=== PATIENT | female | born 1995 | race Caucasian/White ===

== ENCOUNTER 2016-11-24 00:23 | Emergency (ER) | payer OTHER ==
--- NOTE | 2016-11-24 02:31 | ED NURSING NOTES ---
Clinical Report - Nurses [place] [address] [place] [address] 11/24/2016 0:26 [facility]: [facility]É [facility]EL FOLEY [id number] TRI[facility] Triage time 00:33 Nov 24 2016. Acuity: LEVEL 3. Chief Complaint: INJURY TO RIGHT HAND and INJURY TO RIGHT WRIST. SEPSIS SCREEN: Sepsis Screen: negative. Negative (no infection suspected/documented). PATRICIO COMA SCORE: [place] Coma Scale: 15- eyes open spontaneously (4); best verbal response- oriented x 4 (5); best motor response- obeys commands (6). --00:38 Bridgette Herrera 00:33 11/24/16. BP: 116/66. HR: 66. RR: 20. O2 saturation: 99% on room air. Temp: 97.9 F (oral). Pain level now: 04/19. --00:38 Bridgette Herrera. Weight: 63.5 kg stated. Height/Length: 65 inches Per Patient. BMI: 23.3. --00:35 Bridgette Herrera. Medications SUMAtriptan Succinate Oral. --00:34 Bridgette Herrera Control Pills. --00:34 Bridgette Herrera. Medication/allergy information source: the patient. --00:38 Bridgette Herrera. Allergies No Known Drug Allergy. --00:35 Bridgette Herrera. History Arrived by private vehicle. Historian: patient. Accompanied by family. Primary physician ([employer]). This occurred just prior to arrival. Occurred at home. Mechanism of injury: fell while walking and landed on a carpeted surface; tripped. ( Patient reports she was walking at home when she tripped and fell. She states she landed on her right hand extended. She reports pain in her hand and wrist.). Treatment ASSISTANT PROFESSOR OF BIOLOGY: Ice. PAST MEDICAL HX: Immunizations: up-to-date. Last normal menstrual period now. SOCIAL HX: Never smoker. Occasional alcohol use. No drug use. No infectious disease exposure. ABUSE ASSESSMENT: No report of abuse. FALL RISK ASSESSMENT: Fall risk assessment completed. No fall risk identified. NUTRITIONAL RISK ASSESSMENT: The nutritional risk assessment revealed no deficiencies. FUNCTIONAL ASSESSMENT: Functional assessment: no impairments noted. LEARNING NEEDS ASSESSMENT: The learning needs assessment revealed no barriers. SKIN INTEGRITY ASSESSMENT: Skin integrity risk assessment completed. No skin integrity risk identified. --00:38 Bridgette Herrera. PROBLEMS: no known problems. ADDITIONAL SURGERIES: no known surgeries. Interventions ID band on patient. To treatment room. --00:38 Bridgette Herrera. PHYSICAL ASSESSMENT GENERAL / NEURO / PSYCH: Oriented X 4. Alert. Appears in no acute distress. EXTREMITIES: Capillary refill is less than 2 seconds in the extremities. Extremity pulses are within normal limits. Right wrist: tenderness, swelling and ecchymosis located in the ulnar aspect of the wrist. Limited ROM secondary to pain. SKIN: Skin intact. Skin is warm and dry. --00:38 Bridgette Herrera. NURSING PROGRESS NOTES 00:38 11/24/16. Cold pack applied. Patient gowned. Reassurance given to the patient. Two patient identifiers checked. Call light placed in reach. Side rails up x 1. Bed placed in lowest position. Brakes of bed on. Patient ready for evaluation- chart flagged. --00:38 Bridgette Herrera Velcro upper extremity splint applied to right wrist by tech. Distal pulses intact, sensation intact and motor within normal limits. --02:53 Bartolo Rodriguez. DISPOSITION / DISCHARGE 02:40 11/24/16. Condition at departure: stable. No learning barriers present. Discharge instructions provided and reviewed with the patient. Reviewed warnings (Do not drive while on sedative medications). Reviewed medication(s) side effects, precautions, dosing and course information. Prescription(s) given to the patient. Patient verbalized understanding. Written instructions provided in Welsh. ( Apply ice for twenty minutes at a time, elevate extremity and limit use until feeling better. Follow up with your PCP in one week.). The patient was discharged by the physician. She was discharged home and accompanied by spouse. She left the Emergency Department ambulatory and via private vehicle. Spouse driving. --06:16 Bridgette Herrera 02:40 11/24/16. BP: 101/63. HR: 70. RR: 20. O2 saturation: 98% on room air. Temp: 97.8 F (oral). Pain level now: 02/17. --06:16 Bridgette Herrera. Locked/Released at 11/24/2016 6:17 by Bridgette Herrera,
--- NOTE | 2016-11-24 02:31 | ED CLINICAL REPORT ---
Clinical Report - Physicians/Mid Levels [facility] [address] [place] [address] 11/24/2016 0:26 Patient: JOSÉ MANUEL FOLEY Time Seen: 0115. Arrived- By private vehicle. Historian- patient. HISTORY OF PRESENT ILLNESS Chief Complaint: Injury to the right wrist. The injury happened today. Fell (onto her right outstretched hand). Occurred at home. ( no preceding symptoms.). Patient is experiencing moderate pain. Patient denies injury to the head or neck. No other injury. REVIEW OF SYSTEMS The patient has had new onset of swelling. No foreign body or skin laceration. All systems otherwise negative, except as recorded above. PAST HISTORY See nurses notes. Tetanus immunization status is up-to-date. Problems: no known problems. Additional Surgeries: no known surgeries. Medications: Control Pills. SUMAtriptan Succinate Oral. Allergies: No Known Drug Allergy. SOCIAL HISTORY Never smoker. No alcohol use or drug use. Is a local resident. ADDITIONAL NOTES The nursing notes have been reviewed. PHYSICAL EXAM Vital Signs: 11/24/2016 00:33 BP: 116/66. HR: 66. RR: 20. O2 saturation: 99%. Temp: 97.9 F. Pain level now: 8/10. Blood pressure normal. Oxygen saturation normal. Appearance: Alert. Oriented X3. No acute distress. Head: Head atraumatic. Eyes: Pupils equal, round and reactive to light. Eyes normal inspection. ENT: Ears normal. Nose normal. Pharynx normal. Neck: Normal inspection. Neck supple. C-spine non-tender. CVS: Normal heart rate and rhythm. Heart sounds normal. Pulses normal. Respiratory: No respiratory distress. Breath sounds normal. Chest nontender. Abdomen: No visible injury. Soft and nontender. Bowel sounds normal. No mass. Extremities: (ecchymosis noted to the lateral aspect of the dorsal right wrist. No bony abnormalities. Hand and fingers are neurovascularly intact. No snuffbox tenderness. No tenderness with axial loading of the thumb. Radial and ulnar and pulses are symmetrical and 2+ compared to the contralateral side. Compartments are soft. Skin is intact. No other overlying skin changes.). Extremities otherwise negative. Neuro, Vascular and Tendons: Vascular status intact. Sensation intact. Motor intact. Tendon function intact. LABS, X-RAYS, AND EKG Rt Wrist X-ray: No fracture. No bony lesion, air in the soft tissue or foreign body. Joint spaces normal. Mild soft tissue swelling. (negative right wrist film). Views: AP, lateral and oblique. The X-rays were independently viewed by me and interpreted contemporaneously by me. Prior films were not available for comparison. PROGRESS AND PROCEDURES Course of Care: he patient is a pleasant 21-year-old female presenting for evaluation of right wrist pain. At this time differential diagnosis includes dislocation, fracture, or contusion. Patient is declining offers of pain medication at this time. I suspect been provided. No signs of neurovascular compromise on evaluation. Patient is agreeable to the treatment and plan. Workup does not show any acute osseous abnormalities. Soft tissue swelling noted. Head discussion with patient in regards to diagnostic uncertainty here in the emergency department and need for follow-up with the hand to ensure proper healing. Repeat examination continues he benign. Velcro wrist splintapplied for Protection and comfort. Discussed with patient workup, diagnosis, home care, follow-up, and return precautions. All questions have been answered. The patient expressed understanding of these instructions and was agreeable to them. Disposition: Discharged. Condition: good. CLINICAL IMPRESSION 11/24/2016 00:33 BP: 116/66. HR: 66. RR: 20. O2 saturation: 99%. Temp: 97.9 F. Pain level now: 8/10. Blood pressure normal. Oxygen saturation normal. Single contusion with soft tissue hematoma to the right wrist. INSTRUCTIONS Off work today. Off school today. Warnings: GENERAL WARNINGS: Return or contact your physician immediately if your condition worsens or changes unexpectedly, if not improving as expected, or if other problems arise. Specifically return if pain, vomiting, bleeding, breathing difficulty or fever. Your Current Medications: CONTINUE TAKING THE FOLLOWING MEDICATIONS: Control Pills*. SUMAtriptan Succinate Oral. Prescription Medications: [place] 5 mg / 325 mg tablets: take 1 orally every 6 hours as needed for pain. Dispense twelve (12). No refill. Substitution is permissible. OTC Medications: Motrin (available over the counter): take according to label instructions. Follow-up: Return to the emergency department as needed. Follow up with your doctor in one week. Reason for referral: recheck today's concerns. Summary of care provided to patient via paper. Screening today revealed the patient's blood pressure to be in the normal range. The patient should follow up with a primary care provider for blood pressure management. Understanding of the discharge instructions verbalized by patient. (Electronically signed by Gianni Matos Dr. 11/26/2016 10:40)
--- NOTE | 2016-11-24 02:31 | ED ORDER SUMMARY ---
..... Patient: JOSÉ MANUEL FOLEY OrderSheet [facility] VisitID: [id number] [place] [address] 21y, F Registration Date/Time: 11/24/2016 ORDER SHEET Weight: 63.5 kg (stated) Allergies: No Known Drug Allergy GENERAL ORDERS: Wrist 3 or 4V Right Urgent (01:11/24/2016 Gelacio Valdes) (Ack 1:30 ALawrence ER Tech1) (2:37 HSoule) Ice (01:11/24/2016 Gelacio Valdes) (1:28 HSoule) Splint (UE) (Right) (Velcro - wrist) (02:27 11/24/2016 Gelacio Valdes) (6:17 HSoule) MEDICATION ORDERS: IV FLUIDS: ORDER SHEET NOTES: [Electronically signed by Bridgette Herrera (06:17 11/24/2016)] [Electronically signed by Gianni Matos Dr. (10:40 11/26/2016)] [Electronically locked/signed by Bridgette Herrera (06:17 11/24/2016)]
--- NOTE | 2016-11-24 02:31 | ED NURSING NOTES ---
Clinical Report - Nurses [place] [address] [place] [address] 11/24/2016 0:26 [id number] Triage time 00:33 Nov 24 2016. Acuity: LEVEL 3. Chief Complaint: INJURY TO RIGHT HAND and INJURY TO RIGHT WRIST. SEPSIS SCREEN: Sepsis Screen: negative. Negative (no infection suspected/documented). PATRICIO COMA SCORE: [place] Coma Scale: 15- eyes open spontaneously (4); best verbal response- oriented x 4 (5); best motor response- obeys commands (6). --00:38 Bridgette Herrera 00:33 11/24/16. BP: 116/66. HR: 66. RR: 20. O2 saturation: 99% on room air. Temp: 97.9 F (oral). Pain level now: 04/19. --00:38 Bridgette Herrera. Weight: 63.5 kg stated. Height/Length: 65 inches Per Patient. BMI: 23.3. --00:35 Bridgette Herrera. Medications SUMAtriptan Succinate Oral. --00:34 Bridgette Herrera Control Pills. --00:34 Bridgette Herrera. Medication/allergy information source: the patient. --00:38 Bridgette Herrera. Allergies No Known Drug Allergy. --00:35 Bridgette Herrera. History Arrived by private vehicle. Historian: patient. Accompanied by family. Primary physician ([employer]). This occurred just prior to arrival. Occurred at home. Mechanism of injury: fell while walking and landed on a carpeted surface; tripped. ( Patient reports she was walking at home when she tripped and fell. She states she landed on her right hand extended. She reports pain in her hand and wrist.). Treatment CHANGE ANALYST: Ice. PAST MEDICAL HX: Immunizations: up-to-date. Last normal menstrual period now. SOCIAL HX: Never smoker. Occasional alcohol use. No drug use. No infectious disease exposure. ABUSE ASSESSMENT: No report of abuse. FALL RISK ASSESSMENT: Fall risk assessment completed. No fall risk identified. NUTRITIONAL RISK ASSESSMENT: The nutritional risk assessment revealed no deficiencies. FUNCTIONAL ASSESSMENT: Functional assessment: no impairments noted. LEARNING NEEDS ASSESSMENT: The learning needs assessment revealed no barriers. SKIN INTEGRITY ASSESSMENT: Skin integrity risk assessment completed. No skin integrity risk identified. --00:38 Bridgette Herrera. PROBLEMS: no known problems. ADDITIONAL SURGERIES: no known surgeries. Interventions ID band on patient. To treatment room. --00:38 Bridgette Herrera. PHYSICAL ASSESSMENT GENERAL / NEURO / PSYCH: Oriented X 4. Alert. Appears in no acute distress. EXTREMITIES: Capillary refill is less than 2 seconds in the extremities. Extremity pulses are within normal limits. Right wrist: tenderness, swelling and ecchymosis located in the ulnar aspect of the wrist. Limited ROM secondary to pain. SKIN: Skin intact. Skin is warm and dry. --00:38 Bridgette Herrera. NURSING PROGRESS NOTES 00:38 11/24/16. Cold pack applied. Patient gowned. Reassurance given to the patient. Two patient identifiers checked. Call light placed in reach. Side rails up x 1. Bed placed in lowest position. Brakes of bed on. Patient ready for evaluation- chart flagged. --00:38 Bridgette Herrera Velcro upper extremity splint applied to right wrist by tech. Distal pulses intact, sensation intact and motor within normal limits. --02:53 Bartolo Rodriguez. DISPOSITION / DISCHARGE 02:40 11/24/16. Condition at departure: stable. No learning barriers present. Discharge instructions provided and reviewed with the patient. Reviewed warnings (Do not drive while on sedative medications). Reviewed medication(s) side effects, precautions, dosing and course information. Prescription(s) given to the patient. Patient verbalized understanding. Written instructions provided in Slovak. ( Apply ice for twenty minutes at a time, elevate extremity and limit use until feeling better. Follow up with your PCP in one week.). The patient was discharged by the physician. She was discharged home and accompanied by spouse. She left the Emergency Department ambulatory and via private vehicle. Spouse driving. --06:16 Bridgette Herrera 02:40 11/24/16. BP: 101/63. HR: 70. RR: 20. O2 saturation: 98% on room air. Temp: 97.8 F (oral). Pain level now: 02/17. --06:16 Bridgette Herrera. Locked/Released at 11/24/2016 6:17 by Bridgette Herrera,
--- NOTE | 2016-11-24 02:31 | ED ORDER SUMMARY ---
..... Patient: JOSÉ MANUEL FOLEY OrderSheet [facility] VisitID: [id number] [place] [address] 21y, F Registration Date/Time: 11/24/2016 ORDER SHEET Weight: 63.5 kg (stated) Allergies: No Known Drug Allergy GENERAL ORDERS: Wrist 3 or 4V Right Urgent (01:11/24/2016 Gelacio Valdes) (Ack 1:30 ALawrence ER Tech1) (2:37 HSoule) Ice (01:11/24/2016 Gelacio Valdes) (1:28 HSoule) Splint (UE) (Right) (Velcro - wrist) (02:27 11/24/2016 Gelacio Valdes) (6:17 HSoule) MEDICATION ORDERS: IV FLUIDS: ORDER SHEET NOTES: [Electronically signed by Bridgette Herrera (06:17 11/24/2016)] [Electronically signed by Gianni Matos Dr. (10:40 11/26/2016)] [Electronically locked/signed by Bridgette Herrera (06:17 11/24/2016)]
--- NOTE | 2016-11-24 10:16 | DIAGNOSTIC IMAGING REPORT ---
PROCEDURE: XR WRIST MIN 3 VIEWS - RIGHT INDICATION: TRAUMA/INJURY TECHNIQUE: Four views of the right wrist. COMPARISON: None. FINDINGS: Normal mineralization. No fractures. Normal osseous alignment. No suspicious soft-tissue calcification or radiodense foreign bodies. IMPRESSION: 1. Intact right wrist.
--- NOTE | 2016-11-26 10:40 | ED MAR SUMMARY ---
..... Medication Administration Record [facility] [address] [place], [place] [id number] Patient: JOSÉ MANUEL FOLEY Visit ID: [id number] 21y, F Weight: 63.5 kg Height/Length: 65 in BMI: 23.3 ALLERGIES: No Known Drug Allergy
--- NOTE | 2016-11-26 10:40 | ED DISCHARGE INSTRUCTIONS ---
Patient: JOSÉ MANUEL FOLEY General Instructions [facility] VisitID: [id number] [place] [address] 21y, F Registration Date/Time: 11/24/2016 11/24/2016 00:33 BP: 116/66. HR: 66. RR: 20. O2 saturation: 99%. Temp: 97.9 F. Pain level now: 8/10. Blood pressure normal. Oxygen saturation normal. Single contusion with soft tissue hematoma to the right wrist. INSTRUCTIONS Off work today. Off school today. Warnings: GENERAL WARNINGS: Return or contact your physician immediately if your condition worsens or changes unexpectedly, if not improving as expected, or if other problems arise. Specifically return if pain, vomiting, bleeding, breathing difficulty or fever. Your Current Medications: CONTINUE TAKING THE FOLLOWING MEDICATIONS: Control Pills*. SUMAtriptan Succinate Oral. Prescription Medications: [place] 5 mg / 325 mg tablets: take 1 orally every 6 hours as needed for pain. Dispense twelve (12). No refill. Substitution is permissible. OTC Medications: Motrin (available over the counter): take according to label instructions. Follow-up: Return to the emergency department as needed. Follow up with your doctor in one week. Reason for referral: recheck today's concerns. Summary of care provided to patient via paper. Screening today revealed the patient's blood pressure to be in the normal range. The patient should follow up with a primary care provider for blood pressure management. Understanding of the discharge instructions verbalized by patient. ADDITIONAL INFORMATION Contusion:Upper Extremity You have a contusion of your upper extremity (arm, wrist, hand or fingers). This causes local pain, swelling and sometimes bruising. There are no broken bones. This injury takes a few days to a few weeks to heal. A sling may be provided for comfort and arm support. Home Care: 1) Keep your arm elevated to reduce pain and swelling. This is very important during the first 48 hours. 2) Apply an ice pack (ice cubes in a plastic bag, wrapped in a towel) over the injured area for 20 minutes every 1-2 hours the first day for pain relief. Continue this 3-4 times a day until the pain and swelling goes away. 3) You may use acetaminophen (Tylenol) or ibuprofen (Motrin, Advil) to control pain, unless another pain medicine was prescribed. [ NOTE : If you have chronic liver or kidney disease or ever had a stomach ulcer or GI bleeding, talk with your doctor before using these medicines.] 4) If a sling was provided, you may remove it to shower or bathe. Do not wear it for more than one week or it may cause joint stiffness. Follow Up with your doctor or this facility if you are not starting to improve within the next THREE days. [NOTE: If X-rays were taken, they will be reviewed by a radiologist. You will be notified of any new findings that may affect your care.] Get Prompt Medical Attention if any of the following occur: -- Pain or swelling increases -- Redness, warmth or drainage -- Hand or fingers becomes cold, blue, numb or tingly Hydrocodone Bitartrate, Acetaminophen Oral tablet What is this medicine? ACETAMINOPHEN; HYDROCODONE (a set a ENOCH sony fen; ej droe KOE done) is a pain reliever. It is used to treat mild to moderate pain. How should I use this medicine? Take this medicine by mouth. Swallow it with a full glass of water. Follow the directions on the prescription label. If the medicine upsets your stomach, take the medicine with food or milk. Do not take more than you are told to take. Talk to your rivet flunky regarding the use of this medicine in children. This medicine is not approved for use in children. What side effects may I notice from receiving this medicine? Side effects that you should report to your doctor or health ambulatory care coordinator as soon as possible: allergic reactions like skin rash, itching or hives, swelling of the face, lips, or tongue breathing problems confusion feeling faint or lightheaded, falls stomach pain yellowing of the eyes or skin Side effects that usually do not require medical attention (report to your doctor or health ambulatory care coordinator if they continue or are bothersome): nausea, vomiting stomach upset What may interact with this medicine? alcohol antihistamines isoniazid medicines for depression, anxiety, or psychotic disturbances medicines for sleep muscle relaxants naltrexone narcotic medicines (opiates) for pain phenobarbital ritonavir tramadol What if I miss a dose? If you miss a dose, take it as soon as you can. If it is almost time for your next dose, take only that dose. Do not take double or extra doses. Where should I keep my medicine? Keep out of the reach of children. This medicine can be abused. Keep your medicine in a safe place to protect it from theft. Do not share this medicine with anyone. Selling or giving away this medicine is dangerous and against the law. Store at room temperature between 15 and 30 degrees C (59 and 86 degrees F). Protect from light. Keep container tightly closed. Throw away any unused medicine after the expiration date. Discard unused medicine and used packaging carefully. Pets and children can be harmed if they find used or lost packages. What should I tell my health care provider before I take this medicine? They need to know if you have any of these conditions: brain tumor Crohn's disease, inflammatory bowel disease, or ulcerative colitis drink more than 3 alcohol-containing drinks per day drug abuse or addiction head injury heart or circulation problems kidney disease or problems going to the bathroom liver disease lung disease, asthma, or breathing problems an unusual or allergic reaction to acetaminophen, hydrocodone, other opioid analgesics, other medicines, foods, dyes, or preservatives or trying to get breast-feeding What should I watch for while using this medicine? Tell your doctor or health ambulatory care coordinator if your pain does not go away, if it gets worse, or if you have new or a different type of pain. You may develop tolerance to the medicine. Tolerance means that you will need a higher dose of the medicine for pain relief. Tolerance is normal and is expected if you take the medicine for a long time. Do not suddenly stop taking your medicine because you may develop a severe reaction. Your body becomes used to the medicine. This does NOT mean you are addicted. Addiction is a behavior related to getting and using a drug for a non-medical reason. If you have pain, you have a medical reason to take pain medicine. Your doctor will tell you how much medicine to take. If your doctor wants you to stop the medicine, the dose will be slowly lowered over time to avoid any side effects. You may get drowsy or dizzy when you first start taking the medicine or change doses. Do not drive, use machinery, or do anything that may be dangerous until you know how the medicine affects you. Stand or sit up slowly. There are different types of narcotic medicines (opiates) for pain. If you take more than one type at the same time, you may have more side effects. Give your health care provider a list of all medicines you use. Your doctor will tell you how much medicine to take. Do not take more medicine than directed. Call emergency for help if you have problems breathing. The medicine will cause constipation. Try to have a bowel movement at least every 2 to 3 days. If you do not have a bowel movement for 3 days, call your doctor or health ambulatory care coordinator. Too much acetaminophen can be very dangerous. Do not take Tylenol (acetaminophen) or medicines that contain acetaminophen with this medicine. Many non-prescription medicines contain acetaminophen. Always read the labels carefully. You have been given the following additional information: Contusion, Upper Extremity Hydrocodone Bitartrate, Acetaminophen Oral tablet Off work today. Off school today. (Electronically signed by Gianni Matos Dr. 11/26/2016 10:40)
--- NOTE | 2016-11-26 10:40 | ED MAR SUMMARY ---
..... Medication Administration Record [facility] [address] [place], [place] [id number] Patient: JOSÉ MANUEL FOLEY Visit ID: [id number] 21y, F Weight: 63.5 kg Height/Length: 65 in BMI: 23.3 ALLERGIES: No Known Drug Allergy
--- NOTE | 2016-11-26 10:40 | ED DISCHARGE INSTRUCTIONS ---
Patient: JOSÉ MANUEL FOLEY General Instructions [facility] VisitID: [id number] [place] [address] 21y, F Registration Date/Time: 11/24/2016 11/24/2016 00:33 BP: 116/66. HR: 66. RR: 20. O2 saturation: 99%. Temp: 97.9 F. Pain level now: 8/10. Blood pressure normal. Oxygen saturation normal. Single contusion with soft tissue hematoma to the right wrist. INSTRUCTIONS Off work today. Off school today. Warnings: GENERAL WARNINGS: Return or contact your physician immediately if your condition worsens or changes unexpectedly, if not improving as expected, or if other problems arise. Specifically return if pain, vomiting, bleeding, breathing difficulty or fever. Your Current Medications: CONTINUE TAKING THE FOLLOWING MEDICATIONS: Control Pills*. SUMAtriptan Succinate Oral. Prescription Medications: [place] 5 mg / 325 mg tablets: take 1 orally every 6 hours as needed for pain. Dispense twelve (12). No refill. Substitution is permissible. OTC Medications: Motrin (available over the counter): take according to label instructions. Follow-up: Return to the emergency department as needed. Follow up with your doctor in one week. Reason for referral: recheck today's concerns. Summary of care provided to patient via paper. Screening today revealed the patient's blood pressure to be in the normal range. The patient should follow up with a primary care provider for blood pressure management. Understanding of the discharge instructions verbalized by patient. ADDITIONAL INFORMATION Contusion:Upper Extremity You have a contusion of your upper extremity (arm, wrist, hand or fingers). This causes local pain, swelling and sometimes bruising. There are no broken bones. This injury takes a few days to a few weeks to heal. A sling may be provided for comfort and arm support. Home Care: 1) Keep your arm elevated to reduce pain and swelling. This is very important during the first 48 hours. 2) Apply an ice pack (ice cubes in a plastic bag, wrapped in a towel) over the injured area for 20 minutes every 1-2 hours the first day for pain relief. Continue this 3-4 times a day until the pain and swelling goes away. 3) You may use acetaminophen (Tylenol) or ibuprofen (Motrin, Advil) to control pain, unless another pain medicine was prescribed. [ NOTE : If you have chronic liver or kidney disease or ever had a stomach ulcer or GI bleeding, talk with your doctor before using these medicines.] 4) If a sling was provided, you may remove it to shower or bathe. Do not wear it for more than one week or it may cause joint stiffness. Follow Up with your doctor or this facility if you are not starting to improve within the next THREE days. [NOTE: If X-rays were taken, they will be reviewed by a radiologist. You will be notified of any new findings that may affect your care.] Get Prompt Medical Attention if any of the following occur: -- Pain or swelling increases -- Redness, warmth or drainage -- Hand or fingers becomes cold, blue, numb or tingly Hydrocodone Bitartrate, Acetaminophen Oral tablet What is this medicine? ACETAMINOPHEN; HYDROCODONE (a set a ENOCH sony fen; ej droe KOE done) is a pain reliever. It is used to treat mild to moderate pain. How should I use this medicine? Take this medicine by mouth. Swallow it with a full glass of water. Follow the directions on the prescription label. If the medicine upsets your stomach, take the medicine with food or milk. Do not take more than you are told to take. Talk to your game designer/creative director regarding the use of this medicine in children. This medicine is not approved for use in children. What side effects may I notice from receiving this medicine? Side effects that you should report to your doctor or health medical care evaluation specialist as soon as possible: allergic reactions like skin rash, itching or hives, swelling of the face, lips, or tongue breathing problems confusion feeling faint or lightheaded, falls stomach pain yellowing of the eyes or skin Side effects that usually do not require medical attention (report to your doctor or health medical care evaluation specialist if they continue or are bothersome): nausea, vomiting stomach upset What may interact with this medicine? alcohol antihistamines isoniazid medicines for depression, anxiety, or psychotic disturbances medicines for sleep muscle relaxants naltrexone narcotic medicines (opiates) for pain phenobarbital ritonavir tramadol What if I miss a dose? If you miss a dose, take it as soon as you can. If it is almost time for your next dose, take only that dose. Do not take double or extra doses. Where should I keep my medicine? Keep out of the reach of children. This medicine can be abused. Keep your medicine in a safe place to protect it from theft. Do not share this medicine with anyone. Selling or giving away this medicine is dangerous and against the law. Store at room temperature between 15 and 30 degrees C (59 and 86 degrees F). Protect from light. Keep container tightly closed. Throw away any unused medicine after the expiration date. Discard unused medicine and used packaging carefully. Pets and children can be harmed if they find used or lost packages. What should I tell my health care provider before I take this medicine? They need to know if you have any of these conditions: brain tumor Crohn's disease, inflammatory bowel disease, or ulcerative colitis drink more than 3 alcohol-containing drinks per day drug abuse or addiction head injury heart or circulation problems kidney disease or problems going to the bathroom liver disease lung disease, asthma, or breathing problems an unusual or allergic reaction to acetaminophen, hydrocodone, other opioid analgesics, other medicines, foods, dyes, or preservatives or trying to get breast-feeding What should I watch for while using this medicine? Tell your doctor or health medical care evaluation specialist if your pain does not go away, if it gets worse, or if you have new or a different type of pain. You may develop tolerance to the medicine. Tolerance means that you will need a higher dose of the medicine for pain relief. Tolerance is normal and is expected if you take the medicine for a long time. Do not suddenly stop taking your medicine because you may develop a severe reaction. Your body becomes used to the medicine. This does NOT mean you are addicted. Addiction is a behavior related to getting and using a drug for a non-medical reason. If you have pain, you have a medical reason to take pain medicine. Your doctor will tell you how much medicine to take. If your doctor wants you to stop the medicine, the dose will be slowly lowered over time to avoid any side effects. You may get drowsy or dizzy when you first start taking the medicine or change doses. Do not drive, use machinery, or do anything that may be dangerous until you know how the medicine affects you. Stand or sit up slowly. There are different types of narcotic medicines (opiates) for pain. If you take more than one type at the same time, you may have more side effects. Give your health care provider a list of all medicines you use. Your doctor will tell you how much medicine to take. Do not take more medicine than directed. Call emergency for help if you have problems breathing. The medicine will cause constipation. Try to have a bowel movement at least every 2 to 3 days. If you do not have a bowel movement for 3 days, call your doctor or health medical care evaluation specialist. Too much acetaminophen can be very dangerous. Do not take Tylenol (acetaminophen) or medicines that contain acetaminophen with this medicine. Many non-prescription medicines contain acetaminophen. Always read the labels carefully. You have been given the following additional information: Contusion, Upper Extremity Hydrocodone Bitartrate, Acetaminophen Oral tablet Off work today. Off school today. (Electronically signed by Gianni Matos Dr. 11/26/2016 10:40)
--- NOTE | 2016-11-26 10:40 | ED MED RECONCILIATION SUMMARY ---
Patient: JOSÉ MANUEL FOLEY Medication Reconciliation Report [facility] VisitID: [id number] [place] [address] 21y, F Registration Date/Time: 11/24/2016 Weight: 63.5 kg Height/Length: 65 in. BMI: 23.3 ALLERGIES: No Known Drug Allergy The patient's Home Medications are listed below: CONTINUE TAKING THE FOLLOWING MEDICATIONS: Control Pills SUMAtriptan Succinate Oral The source(s) of the original Home Medication information: patient The following Medications were given to the patient in the Emergency Department: None. The following Medications were prescribed to the patient: Motrin (available over the counter): take according to label instructions. -- Gianni Matos Dr. [place] 5 mg / 325 mg tablets: take 1 orally every 6 hours as needed for pain. Dispense twelve (12). No refill. Substitution is permissible. -- Gianni Matos Dr.
--- NOTE | 2016-11-26 10:40 | ED MED RECONCILIATION SUMMARY ---
Patient: JOSÉ MANUEL FOLEY Medication Reconciliation Report [facility] VisitID: [id number] [place] [address] 21y, F Registration Date/Time: 11/24/2016 Weight: 63.5 kg Height/Length: 65 in. BMI: 23.3 ALLERGIES: No Known Drug Allergy The patient's Home Medications are listed below: CONTINUE TAKING THE FOLLOWING MEDICATIONS: Control Pills SUMAtriptan Succinate Oral The source(s) of the original Home Medication information: patient The following Medications were given to the patient in the Emergency Department: None. The following Medications were prescribed to the patient: Motrin (available over the counter): take according to label instructions. -- Gianni Matos Dr. [place] 5 mg / 325 mg tablets: take 1 orally every 6 hours as needed for pain. Dispense twelve (12). No refill. Substitution is permissible. -- Gianni Matos Dr.
== END 2016-11-24 02:40 | disposition home or self-care (01) ==
LOC: ED SRH 00:23
DX: S60.211A Contusion of right wrist, initial encounter (principal); W19.XXXA Unspecified fall, initial encounter; Y92.009 Unspecified place in unspecified non-institutional (private) residence as the place of occurrence of the external cause; Y99.9 Unspecified external cause status; Y93.9 Activity, unspecified; Z79.899 Other long term (current) drug therapy